=== PATIENT | female | born 1995 | race African-American/Black ===

== ENCOUNTER 2021-09-04 23:14 | Emergency (ER) | payer MEDICAID ==
[~2021-09-04] VITALS: Ht 170.2 cm; Wt 68.0 kg
[2021-09-05] MEDS ORDERED: TETRACAINE 0.5% OPHTH DROPS 4ML RIGHTEYE ONE (01:00)
[2021-09-05] MEDS ORDERED: FLUORESCEIN SODIUM 1MG/STRIP RIGHTEYE ONE (01:00)
[2021-09-05] MEDS ORDERED: KETOROLAC 60MG/2ML VIAL IM ONE (04:00)
[2021-09-05 05:09] LABS: BASOPHILS % 0.9 % (0.0-2.0); HEMATOCRIT. 22.8 % (36.0-48.0); LYMPHOCYTES % 39.2 % (20.0-50.0); MEAN CORPUSCULAR HEMOGLOBIN 16.5 pg (28.0-32.0); MEAN CORPUSCULAR VOLUME 58.3 fL (81.0-99.0); MEAN PLATELET VOLUME 8.6 fl (7.4-10.4); MONOCYTES % 8.3 % (2.0-8.0); NEUTROPHILS % 50.6 % (40.0-76.0); PLATELET 279 x1000/uL (130-400); RED BLOOD CELL COUNT 3.91 mill/uL (4.2-5.4); RED CELL DISTRIBUTION WIDTH 20.4 % (11.6-14.6)
[2021-09-05 05:20] LABS: CHLORIDE 113 mEq/L (98-107)
[2021-09-05 05:25] LABS: HEMOGLOBIN. 6.5 g/dL (12.0-16.0)
[2021-09-05 05:46] LABS: PLATELET ESTIMATE NORMAL
[2021-09-05 05:51] VITALS: BP 97/57
[2021-09-05] MEDS ORDERED: IMIT25 MT (06:17)
[2021-09-05] MEDS ORDERED: IOHEXOL-350 100 ML BOTTLE ONE (06:30)
== END 2021-09-05 09:33 | disposition left against medical advice (07) ==
LOC: ER 23:14
DX: G43.909 Migraine, unspecified, not intractable, without status migrainosus (principal); D64.9 Anemia, unspecified
CPT/HCPCS: 36415; 70450; 70481; 70496; 80048; 81025; 85025; 86850; 86900; 86901; 86920; 96372; 99285; J1885; Q9967